=== PATIENT | male | born 1975 | race Caucasian/White ===

== ENCOUNTER 2016-07-27 06:16 | Emergency (ER) | payer OTHER ==
[~2016-07-27] VITALS: Ht 177.8 cm; Wt 90.7 kg
[2016-07-27 06:24] VITALS: BP 123/66
[2016-07-27] MEDS ORDERED: PRED20SO PO (07:12)
[2016-07-27] MEDS ORDERED: HYDR15SO4 PO (07:12)
--- NOTE | 2016-07-27 07:12 | PHYS DOC ---
Past Medical History Past Medical History: Asthma, GERD, Hyperthyroid Past Surgical History: Appendectomy, Other Additional Past Surgical Histo: P thyroidectomy, r shoulder, l knee, r ankle Alcohol Use: Occasionally Drug Use: None Adult General Chief Complaint Chief Complaint: SORE THROAT HPI HPI 40-year-old male presenting to the emergency department today with sore throat. It is a burning sensation worse with swallowing. He denies difficulty swallowing. No alleviating factors. He denies fevers chills. He also reports a nonproductive cough for the past 2 days. Duration intermittent. Review of Systems Review of Systems ROS negative for chest pain shortness of breath. He denies tongue swelling, tinismus, neck swelling. He reports normal range of motion of the neck. He denies changes in voice. All other review of systems is negative unless otherwise noted in history of present illness. Allergies Allergies Allergies Coded Allergies Type Severity Reaction Last Updated Verified No Known Drug Allergies 07/27/16 No Physical Exam Physical Exam Constitutional: Well developed, well nourished, no acute distress, non-toxic appearance. HENT: Normocephalic, atraumatic, bilateral external ears normal, oropharynx moist, no oral exudates, nose normal. no tongue swelling. mild erythema of the pharynx. no LAW CLERK present. Eyes: PERRLA, EOMI, conjunctiva normal, no discharge. Neck: Normal range of motion, no tenderness, supple, no stridor. [] Cardiovascular:Heart rate regular rhythm, no murmur [] Lungs & Thorax: Bilateral breath sounds clear to auscultation Abdomen: Bowel sounds normal, soft, no tenderness, no masses, no pulsatile masses. [] Skin: Warm, dry, no erythema, no rash. Back: No tenderness, no CVA tenderness. [] Extremities: No tenderness, no cyanosis, no clubbing, ROM intact, no edema. Neurologic: Alert and oriented X 3, normal motor function, normal sensory function, no focal deficits noted. Psychologic: Affect normal, judgement normal, mood normal. [] Current Patient Data Vital Signs Vital Signs Date Time Temp Pulse Resp B/P Pulse Ox O2 Delivery O2 Flow Rate FiO2 07/27/16 06:24 97.9 66 18 94 Room Air 97.9 EKG EKG [] Radiology/Procedures Radiology/Procedures [] Course & Med Decision Making Course & Med Decision Making Pertinent Labs and Imaging studies reviewed. (See chart for details) [] 30-year-old male presenting to the emergency department with a sore throat. Vital signs were unremarkable. Physical exam not suggestive of peritonsillar abscess. Not suggestive of deeper abscess formation. Strep test negative. Patient discharged home with oral pain medication and corticosteroids for symptomatic treatment. Dragon Disclaimer Dragon Disclaimer This electronic medical record was generated, in whole or in part, using a voice recognition dictation system. Departure Departure Impression: Primary Impression: Viral pharyngitis Disposition: HOME, SELF-CARE Condition: STABLE Referrals: GRAEME MATHIS DO (PCP) Patient Instructions: Viral Pharyngitis Additional Instructions: Thank you for allowing us to participate in your care today. Followup with your primary care physician in 3 days if your symptoms do not improve. If you do not have a primary care provider you can ask for a list of our primary care providers. Return to the emergency department you have any new or concerning findings. This should be evaluated by the primary care physician and any necessary consulting services for continued management within a few days after discharge. Return to emergency room if you have any new or concerning symptoms including but not limited to fever, chills, nausea, vomiting, intractable pain, any new rashes, chest pain, shortness of air, uncontrolled bleeding, difficulty breathing, and/or vision loss. You may have been prescribed medication that can change in your level of thinking and ability to operate machinery. These medications include hydrocodone and Ativan. Also, Benadryl has been known to do this as well. Be sure to check with your pharmacist and ask if the medications you've prescribed can affect your level of consciousness. I recommend not operating heavy machinery or driving while on medication such as these. Scripts Prednisolone Sod Phosphate (Veripred 20)20 Mg/5 Ml [id number] Mg PO DAILY 5 Days Prov:HAM VICTORIA MD 07/27/16 Hydrocodone Bit/Acetaminophen (Hydrocodone-Apap 7.5-325/15 Soln )15 Ml [id number] Ml PO PRN Q6HRS PRN PAIN #60 ML Ref 0 Prov:HAM VICTORIA MD 07/27/16 HAM VICTORIA MD Jul 27, 2016 07:12
[2016-07-27 07:29] LABS: NEGATIVE OBC STREP NEG; POSITIVE OBC STREP POS
== END 2016-07-27 07:15 | disposition home or self-care (01) ==
LOC: ER 06:16
DX: J02.9 Acute pharyngitis, unspecified (principal); J45.909 Unspecified asthma, uncomplicated; E05.90 Thyrotoxicosis, unspecified without thyrotoxic crisis or storm; E89.0 Postprocedural hypothyroidism
CPT/HCPCS: 87070; 87880; 99284